=== PATIENT | female | born 1995 | race African-American/Black ===

== ENCOUNTER → 2018-03-02 | Outpatient (CLI) | payer OTHER | LOC: M LRY 18:15 | DX: R05 Cough (principal) | CPT/HCPCS: 71046; G0463 ==

== ENCOUNTER 2018-04-10 06:49 | Emergency (ER) | payer OTHER ==
[~2018-04-10] VITALS: Ht 165.1 cm; Wt 68.2 kg
[2018-04-10] MEDS ORDERED: WARF05TA PO (07:52)
[2018-04-10] MEDS ORDERED: VALA500T5 PO (07:52)
[2018-04-10] MEDS ORDERED: BUPR150T5 PO (07:53)
--- NOTE | 2018-04-10 09:00 | REP ---
Chest x-ray: Two views. History: Productive cough. Comparison study: March 02, 2018. Findings: The patient is status post median sternotomy and cardiac valve replacement. The heart is not enlarged overall but there is evidence of left atrial enlargement as before. Pulmonary vasculature is not increased. The lung maza are clear. Pleural angles are sharp. Pulmonary vasculature is not increased. No bony abnormality is seen. Impression: No infiltrate seen. Status post cardiac valve replacement. Evidence of left atrial enlargement. This is unchanged from March 02, 2018. Electronically Signed by Zackary Barrientos MD 04/10/2018 09:32 A
[2018-04-10 09:05] VITALS: BP 118/58
== END 2018-04-10 09:08 | disposition home or self-care (01) ==
LOC: M ED 06:49
DX: J06.9 Acute upper respiratory infection, unspecified (principal); Z95.4 Presence of other heart-valve replacement; Z79.01 Long term (current) use of anticoagulants; Z79.899 Other long term (current) drug therapy

== ENCOUNTER 2018-07-10 08:40 | Emergency (ER) | payer OTHER ==
[~2018-07-10] VITALS: Ht 165.1 cm; Wt 76.1 kg
[~2018-07-10 08:40] MED LIST: BUPR150T5 PO; VALA500T5 PO; WARF05TA PO
--- NOTE | 2018-07-10 09:21 | REP ---
CT of the brain without IV contrast: There are no comparisons. There is no hemorrhage. There is no edema, mass effect or midline shift. The ventricles are normal size and midline. However, there is focal encephalomalacia in the right parietal lobe compatible with an old infarct. The visualized paranasal sinuses and mastoid air cells are clear. Impression: Old right parietal infarct. No hemorrhage, acute infarct or mass. Electronically Signed by Manfred Cisneros MD 07/10/2018 09:13 A
[2018-07-10 09:28] LABS: BASO % 1.1 % (0.0-1.0); EOS # 0.1 10^3/uL (0.0-0.50); EOS % 3.1 % (0.0-3.0); HEMATOCRIT 36.1 % (36.0-47.0); HEMOGLOBIN 10.9 g/dl (12.0-15.5); MEAN CORPUSCULAR HEMOGLOBIN 23.8 pg (27.0-33.0); MEAN CORPUSCULAR HGB CONC 30.2 g/dl (32.0-36.5); MEAN CORPUSCULAR VOLUME 78.8 fl (80.0-96.0); MONO # 0.3 10^3/uL (0.0-0.8); MONO % 9.3 % (0.0-5.0); NEUTROPHILS # 2.1 10^3/uL (1.8-7.7); NEUTROPHILS % 58.5 % (36.0-66.0); PLATELET COUNT, AUTOMATED 180 10^3/uL (150-450); RED BLOOD COUNT 4.58 10^6/uL (4.00-5.40); WHITE BLOOD COUNT 3.5 10^3/uL (4.0-10.0)
[2018-07-10 09:35] LABS: INR 3.53; PROTHROMBIN TIME 36.2 SECONDS (12.1-14.4)
[2018-07-10 10:05] LABS: ALT/SGPT 15 U/L (12-78); BLOOD UREA NITROGEN 11 MG/DL (7-18); CALCIUM LEVEL 8.7 MG/DL (8.5-10.1); CARBON DIOXIDE LEVEL 26 MEQ/L (21-32); CHLORIDE LEVEL 107 MEQ/L (98-107); CREATININE FOR GFR 0.61 MG/DL (0.55-1.30); GLOMERULAR FILTRATION RATE > 60.0 (>60); GLUCOSE, FASTING 91 MG/DL (70-100); POTASSIUM SERUM 3.9 MEQ/L (3.5-5.1); SODIUM LEVEL 139 MEQ/L (136-145)
[2018-07-10 10:06] LABS: ACETAMINOPHEN LEVEL < 2.0 UG/ML (10.0-30.0); ALBUMIN 4.1 GM/DL (3.2-5.2); BILIRUBIN,DIRECT 0.1 MG/DL (0.0-0.2); BILIRUBIN,TOTAL 0.4 MG/DL (0.2-1.0); CK-MB VALUE MASS < 1.0 NG/ML (<3.6); CPK CREATINE PHOSPHOKINASE 149 U/L (26-192); ETHYL ALCOHOL (ETHANOL) < 0.003 % (0.000-0.010); HCG, SERUM QUALITATIVE NEGATIVE (NEGATIVE); MB/CK RELATIVE INDEX 0.67 (< OR =4); SALICYLATE LEVEL < 1.7 MG/DL (5.0-30.0); TOTAL PROTEIN 7.5 GM/DL (6.4-8.2); TROPONIN I < 0.02 NG/ML (< 0.10)
[2018-07-10 10:17] LABS: AMPHETAMINES LEVEL URINE NEGATIVE (NEGATIVE); BARBITURATES URINE NEGATIVE (NEGATIVE); BENZODIAZEPINES URINE NEGATIVE (NEGATIVE); CANNABINOIDS URINE NEGATIVE (NEGATIVE); COCAINE METABOLITE URINE NEGATIVE (NEGATIVE); METHADONE URINE NEGATIVE (NEGATIVE); OPIATES URINE NEGATIVE (NEGATIVE); PHENCYCLIDINE URINE NEGATIVE (NEGATIVE)
[2018-07-10 10:45] LABS: FERRITIN 7 NG/ML (8-252); IRON (FE) 30 UG/DL (50-170); PERCENT SATURATION 8.6 % (13.2-45.0); TOTAL IRON BINDING CAPACITY 349 UG/DL (250-450)
[2018-07-10 10:54] LABS: FOLATE 17.1 NG/ML (>5.4); VITAMIN B12 LEVEL 260 PG/ML (247-911)
--- NOTE | 2018-07-10 10:58 | REP ---
Oral chest x-ray: Single view. History: Altered mental status. Comparison chest x-ray: April 10, 2018. Findings: The patient is status post cardiac valve replacement via median sternotomy. Cardiomegaly is observed unchanged mild in degree. There is evidence of left atrial enlargement. Pulmonary vasculature is cephalized. No pleural effusion or pulmonary edema seen. Impression: Mildly prominent heart. Prior sternotomy and cardiac valve replacement. Cephalization of the pulmonary vasculature. Electronically Signed by Zackary Barrientos MD 07/10/2018 10:49 A
--- NOTE | 2018-07-10 15:33 | REP ---
MR angiography the brain without contrast: History: Altered mental status. Old right parietal infarct on CT. Technique: 3-D [id number] MR angiography of the brain is acquired in the usual fashion and maximal intensity projection images were generated in rotational format about the vertical and horizontal axes. In addition, source axial T1-weighted images are viewed in cine mode. MR angiographic findings: The distal vertebral arteries are patent and co-dominant. Basilar artery is a little tortuous but widely patent. The posterior cerebral and superior cerebellar vessels are normal and symmetric. The distal internal carotid arteries are unremarkable. Anterior and middle cerebral arteries appear intact. There is no visible tripp aneurysm or arteriovenous malformation. Impression: Unremarkable MR angiography the brain. Electronically Signed by Zackary Barrientos MD 07/10/2018 03:25 P
--- NOTE | 2018-07-10 15:46 | REP ---
MRI brain without contrast: History: Altered mental status. Old right parietal infarct on CT without prior event. Technique: Axial and sagittal imaging planes are utilized for T1 and T2-weighted scans. Sequences include spin-echo, fast spin echo, FLAIR, and diffusion weighted sequences. MRI findings: There is magnetic field susceptibility artifact emanating from the oral cavity consistent with orthodontia. There is no MR evidence of significant paranasal sinus disease or intraorbital abnormality. No bony calvarial lesion is seen. Craniocervical junction and upper cervical cord are normal in appearance. There is a peripheral focus of encephalomalacia in the right parietal lobe consistent with an old infarct. There is slight hemosiderin staining along the edges of this. There is no evidence of restricted diffusion here or elsewhere in the brain on diffusion weighted scans. No abnormal vascular channels are appreciated. There are a few other scattered leptomeningeal foci of hemosiderin staining ("blooming artifact") also noted on gradient echo images. This is suggestive of prior subarachnoid hemorrhage. There is no evidence of acute hemorrhage. No mass or midline shift is seen. Impression: Focus of encephalomalacia in the right parietal lobe with hemosiderin staining at this site as well as scattered leptomeningeal foci of hemosiderin staining suggestive of prior subarachnoid hemorrhage. Findings in the parietal lobe are consistent with an old hemorrhagic infarct. No acute intracranial abnormality seen. Electronically Signed by Zackary Barrientos MD 07/10/2018 06:52 P
--- NOTE | 2018-07-10 15:51 | ECGEPIP ---
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
[2018-07-10 17:26] VITALS: BP 120/64
== END 2018-07-10 17:33 | disposition home or self-care (01) ==
LOC: M ED 08:40 → EDBD 08:40 → M ED 17:33
DX: Z76.5 Malingerer [conscious simulation] (principal); Z95.2 Presence of prosthetic heart valve; Z79.01 Long term (current) use of anticoagulants
CPT/HCPCS: 70450; 70544; 70551; 71045; 80048; 80076; 80307; 82550; 82553; 82607; 82728; 82746; 83550; 84443; 84484; 84703; 85025; 85610; 87040; 93005; 93041; 94760; 99285; G0480

== ENCOUNTER 2018-07-15 14:58 | Emergency (ER) | payer OTHER ==
[~2018-07-15] VITALS: Ht 165.1 cm; Wt 72.3 kg
[2018-07-15 15:24] LABS: BASO % 0.5 % (0.0-1.0); EOS # 0.1 10^3/uL (0.0-0.50); EOS % 1.5 % (0.0-3.0); HEMATOCRIT 36.3 % (36.0-47.0); LYMPH # 1.2 10^3/uL (1.5-6.5); LYMPH % 31.3 % (24.0-44.0); MEAN CORPUSCULAR HGB CONC 30.3 g/dl (32.0-36.5); MEAN CORPUSCULAR VOLUME 79.1 fl (80.0-96.0); MONO # 0.5 10^3/uL (0.0-0.8); MONO % 12.4 % (0.0-5.0); NEUTROPHILS # 2.2 10^3/uL (1.8-7.7); NEUTROPHILS % 54.3 % (36.0-66.0); PLATELET COUNT, AUTOMATED 178 10^3/uL (150-450); RED BLOOD COUNT 4.59 10^6/uL (4.00-5.40)
[2018-07-15 15:38] LABS: INR 2.68; PARTIAL THROMBOPLASTIN TIME 41.4 SECONDS (25.4-37.6); PROTHROMBIN TIME 29.1 SECONDS (12.1-14.4)
[2018-07-15 15:42] LABS: HCG, SERUM QUALITATIVE NEGATIVE (NEGATIVE)
[2018-07-15 15:52] LABS: BLOOD UREA NITROGEN 10 MG/DL (7-18); CALCIUM LEVEL 8.9 MG/DL (8.5-10.1); CARBON DIOXIDE LEVEL 26 MEQ/L (21-32); CHLORIDE LEVEL 107 MEQ/L (98-107); CK-MB VALUE MASS < 1.0 NG/ML (<3.6); CPK CREATINE PHOSPHOKINASE 157 U/L (26-192); CREATININE FOR GFR 0.67 MG/DL (0.55-1.30); GLOMERULAR FILTRATION RATE > 60.0 (>60); GLUCOSE, FASTING 122 MG/DL (70-100); MB/CK RELATIVE INDEX 0.64 (< OR =4); SODIUM LEVEL 140 MEQ/L (136-145); TROPONIN I < 0.02 NG/ML (< 0.10)
--- NOTE | 2018-07-15 16:16 | REP ---
CT Head without contrast HISTORY: Infarction COMPARISON: 07/10/2018 A small area of decreased attenuation is present in the right parietal lobe. There is dilatation of the overlying cortical sulci. This represents an old infarction. There is no intraparenchymal hemorrhage, acute infarct, mass or midline shift. The ventricular system is normal in appearance. There is no extra cerebral collection. There is no fracture. The visualized sinuses are clear. IMPRESSION: Old small right parietal lobe infarction. Electronically Signed by Andrew Serrano MD 07/15/2018 04:08 P
--- NOTE | 2018-07-15 16:38 | REP ---
HISTORY: History of CVA. COMPARISON: Multiple, the latest 07/10/2018. The technique utilized in obtaining the radiograph has magnified the cardiac silhouette and accentuated the interstitial markings. No significant change from the prior exam other than technique. The lung maza are less than optimally expanded. There is cardiomegaly accentuated by technique. There is no significant change in the appearance of the lung maza. No acute patchy parenchymal opacities or pleural effusions have developed. Note is again made of previous median sternotomy and aortic valvular replacement. Once again, there is evidence of pulmonary vascular redistribution. IMPRESSION: No significant change from the prior exam. There is evidence of early pulmonary edema with mild cardiomegaly and other findings as described above. Electronically Signed by Aleksandr Saenz DO 07/16/2018 12:03 P
[2018-07-15 18:15] VITALS: BP 116/67
--- NOTE | 2018-07-15 21:42 | ECGEPIP ---
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
--- NOTE | 2018-07-16 14:14 | ED PDOC ---
Post-Departure Follow-Up robert villalta faxed formal report of cxr for fu Adela Whyte MD Jul 16, 2018 14:14
== END 2018-07-15 18:32 | disposition home or self-care (01) ==
LOC: M ED 14:58 → EDBD 14:58 → M ED 18:32
DX: R53.1 Weakness (principal); R20.2 Paresthesia of skin; Z95.4 Presence of other heart-valve replacement; Z86.73 Personal history of transient ischemic attack (TIA), and cerebral infarction without residual deficits; Z79.01 Long term (current) use of anticoagulants; Z79.899 Other long term (current) drug therapy

== ENCOUNTER 2018-09-02 11:11 | Emergency (ER) | payer OTHER ==
[~2018-09-02] VITALS: Ht 165.1 cm; Wt 74.2 kg
[2018-09-02 11:11] VITALS: BP 132/71
[2018-09-02] MEDS ORDERED: VITAD1000T PO (11:40)
== END 2018-09-02 12:15 | disposition home or self-care (01) ==
LOC: M ED 11:11
DX: T74.11XA Adult physical abuse, confirmed, initial encounter (principal); Y07.01 Husband, perpetrator of maltreatment and neglect; Z95.2 Presence of prosthetic heart valve; Z86.79 Personal history of other diseases of the circulatory system; Z79.899 Other long term (current) drug therapy; Z79.01 Long term (current) use of anticoagulants